=== PATIENT | female | born 1975 | race Caucasian/White ===

== ENCOUNTER 2019-01-28 15:14 | Emergency (ER) | payer BC ==
[~2019-01-28] VITALS: Ht 160 cm; Wt 62.3 kg
[2019-01-28 15:33] VITALS: Ht 160 cm; Wt 62.3 kg
[2019-01-28] MEDS ORDERED: SYNTHROID100 MCG PO (15:34)
[2019-01-28] MEDS ORDERED: TRINTELLIX5 MG PO (15:34)
[2019-01-28 16:08] LABS: BASOPHILS 0.2 % (0-2); EOSINOPHILS 1.1 % (0-7); HEMOGLOBIN 13.1 g/dL (12-16); IMMATURE GRANULOCYTES 0.3 % (0-5); LYMPHOCYTES 20.5 % (15-50); MCH 31.6 pg (26.0-34.0); MCHC 33.6 g/dL (31.0-37.0); MEAN PLATELET VOLUME 9.7 fL (7.4-10.4); MONOCYTES 10.6 % (2-11); NEUTROPHILS 67.3 % (40-80); PLATELET COUNT 276 10x3/uL (130-400); RBC 4.15 10x6/uL (4.00-5.40); RDW 12.2 % (11.5-14.5); WBC 6.4 10x3/uL (4.8-10.8)
[2019-01-28 16:41] LABS: CALC OSMOLALITY 278 mosm/kg (275-300); CARBON DIOXIDE 25.8 mmol/L (21.0-32.0); CHLORIDE - SERUM 103 mmol/L (98-107); CREATININE - SERUM 0.8 mg/dL (0.6-1.3); GLUCOSE 91 mg/dL (74-106); POTASSIUM - SERUM 3.7 mmol/L (3.5-5.1); SODIUM 140 mmol/L (136-145); UREA NITROGEN 12 mg/dL (7-18); eGFR NON AFRICAN AMERICAN 83 mL/min (90-120)
[2019-01-28 16:56] LABS: ALBUMIN 3.8 g/dL (3.4-5.0); ALKALINE PHOSPHATASE 66 U/L (46-116); ALT (SGPT) 20 U/L (10-68); BILIRUBIN - TOTAL 0.18 mg/dL (0.2-1.3); PROTEIN - SERUM 7.1 g/dL (6.4-8.2); T4 THYROXIN - FREE 1.26 ng/dL (0.76-1.46)
[2019-01-28] MEDS ORDERED: KLONOPIN1 MG PO (18:17)
[2019-01-28 19:01] VITALS: BP 104/50
== END 2019-01-28 19:00 | disposition home or self-care (01) ==
LOC: D.ER 15:14
PROVIDERS: Family Medicine
DX: T38.1X1A Poisoning by thyroid hormones and substitutes, accidental (unintentional), initial encounter (principal); E07.9 Disorder of thyroid, unspecified